=== PATIENT | female | born 1945 ===

== ENCOUNTER 2017-05-06 07:35 | Day surgery (SDC) | payer OTHER ==
[2017-05-06 07:53] VITALS: BMI 29.5
[2017-05-06] MEDS ORDERED: DiphenhydrAMINE 50 mg/ml Inj IM STA (07:56)
[2017-05-06] MEDS ORDERED: DiphenhydrAMINE 50 mg/ml Inj ONE ×2 (08:02→10:23)
[2017-05-06] MEDS ORDERED: Midazolam 2 MG/2 ML VIAL ONE ×2 (10:18→11:08)
[2017-05-16 18:42] VITALS: RESP 14; O2SAT 100
--- NOTE | 2017-06-04 18:17 | CATH ---
APPROVED REPORT Procedure(s) performed: Left Heart Catheterization Coronary Arteriogram HISTORY The patient is a 71 year-old female with a history of : coronary artery disease, previous PCI (The PCI date was ), dyslipidemia. INDICATION The indication(s) include : non-STEMI . CASE TECHNIQUE The patient was brought electively to the Cardiac Catheterization Laboratory in a fasting state and was prepped and draped in a sterile manner. The right femoral groin was infiltrated with 2% Lidocaine subcutaneous anesthesia. A sheath was inserted into the right femoral artery without difficulty. Coronary angiography was performed using coronary diagnostic catheters. The left coronary system was accessed and visualized with a Diagnostic catheter. The right coronary system was accessed and visualized with a Diagnostic catheter. The left ventricle was accessed and visualized with a Diagnostic catheter. Left ventricular/Aortic Valve gradient assessed on pullback. Left ventriculogram was performed in PEDROZA projection. Pre-demployment femoral angiogram was performed . Closure device was deployed with a 6 Fr Angioseal without any complications. The patient tolerated the procedure well and there were no complications associated with the procedure. Vessel Analysis The patient's coronary anatomy is right dominant. The left main coronary artery is a medium size vessel without significant stenosis. The left main bifurcates to the left anterior descending and circumflex. The left anterior descending artery is a large size vessel without significant stenosis. The first diagonal branch is a medium size vessel without significant stenosis. The circumflex artery is a medium size vessel without significant stenosis. The first obtuse marginal branch is a large size vessel with stenosis. There is a 70% stenosis in the distal segment. THERE IS A 90% STENOSIS OF THE OSTIAL SEGMENT OF A BRANCH VESSEL ORIGINATING OFF OM1 The right coronary artery is a large size vessel with stenosis. There is a 80% stenosis in the mid segment. AND DISTAL SEGMENT The right posterior descending artery is a medium size vessel withOUT stenosis. The right posterolateral branch is a small size vessel with intimal irregularities. Left Ventricle The left ventricle is NML in size with NML contractility. The left ventricular ejection fraction is estimated to be 75%. There was no gradient across the aortic valve upon pullback. Conclusion Double Vessel CAD Recommendations Daily ASA with Plavix for at least one year Aggressive Medical TherapyCardiac Risk Reduction Program PCI ONCE PT COMNPLIANT WITH DUAL ANTIPLT THERAPY
== END 2017-05-06 15:30 | disposition short-term general hospital (02) ==
LOC: C.CATHLAB 07:35
PROVIDERS: ATTEND Internal Medicine Cardiovascular Disease
DX: I21.4 Non-ST elevation (NSTEMI) myocardial infarction (principal); I25.10 Atherosclerotic heart disease of native coronary artery without angina pectoris; E78.5 Hyperlipidemia, unspecified